=== PATIENT | male | born 2000 | race Two or more races ===

== ENCOUNTER 2019-05-24 16:46 | Emergency (ER) | payer OTHER ==
[~2019-05-24] VITALS: Ht 170.2 cm; Wt 77.7 kg
[2019-05-24 17:08] VITALS: BP 130/76
[2019-05-24] MEDS ORDERED: LIDOCAINE 5% TRANSDERMAL PATCH TD ONE (18:45)
[2019-05-24] MEDS ORDERED: KETOROLAC TROMETHAMINE 30 MG/ML VIAL IM ONE (18:45)
== END 2019-05-24 19:10 | disposition home or self-care (01) ==
LOC: EMS 16:46
DX: M54.5 Low back pain (principal); M79.605 Pain in left leg; J45.909 Unspecified asthma, uncomplicated
CPT/HCPCS: 96372; 99283; J1885